=== PATIENT | female | born 2000 | race African-American/Black ===

== ENCOUNTER 2019-12-30 12:06 | Emergency (ER) | payer MEDICAID ==
[~2019-12-30] VITALS: Ht 167.6 cm; Wt 95.0 kg
[2019-12-30 12:11] VITALS: BP 118/64
[2019-12-30 13:39] LABS: CLARITY URINE CLOUDY (CLEAR); COLOR URINE DARK YELLOW (YELLOW); KETONES URINE TRACE (NEGATIVE); LEUKOCYTE ESTERASE URINE TRACE (NEGATIVE); NITRITE URINE NEGATIVE (NEGATIVE); OCCULT BLOOD URINE NEGATIVE (NEGATIVE); PROTEIN URINE NEGATIVE (NEGATIVE); SPECIFIC GRAVITY URINE 1.028 (1.005-1.030)
[2019-12-30] MEDS ORDERED: CEFTRIAXONE SODIUM 250 MG/VIAL IM ONE (13:45)
[2019-12-30] MEDS ORDERED: LIDOCAINE HCL 1% 20ML VIAL (Pyxis) INJ INFIL ONE (13:45)
[2019-12-30] MEDS ORDERED: AZITHROMYCIN 500 MG TABLET PO ONE (13:45)
== END 2019-12-30 14:49 | disposition home or self-care (01) ==
LOC: ER 13:55
DX: N30.00 Acute cystitis without hematuria (principal); A64 Unspecified sexually transmitted disease
CPT/HCPCS: 81003; 81025; 96372; 99283; J0696; J3490

== ENCOUNTER 2021-12-10 13:42 | Observation (INO) | payer MEDICAID ==
[2021-12-10 15:19] LABS: CLARITY URINE CLOUDY (CLEAR); COLOR URINE YELLOW (YELLOW); KETONES URINE NEGATIVE (NEGATIVE); LEUKOCYTE ESTERASE URINE 1+ (NEGATIVE); NITRITE URINE NEGATIVE (NEGATIVE); OCCULT BLOOD URINE NEGATIVE (NEGATIVE); PH URINE 7.5 (4.5-8.0); PROTEIN URINE NEGATIVE (NEGATIVE); SPECIFIC GRAVITY URINE 1.015 (1.005-1.030)
[2021-12-10] MEDS ORDERED: CEFAZOLIN 2,000 MG in DEXT 5% WATER 100 ML IV SCH (18:00)
== END 2021-12-10 18:20 | disposition home or self-care (01) ==
LOC: 8 EST LDRP 13:42
PROVIDERS: ADMIT Obstetrics & Gynecology; ATTEND Obstetrics & Gynecology
DX: O42.92 Full-term premature rupture of membranes, unspecified as to length of time between rupture and onset of labor (principal); Z3A.39 39 weeks gestation of pregnancy
CPT/HCPCS: 59025; 76805; 76818; 81003; 96365; G0378; J0690; J7060; 96360; 99281

== ENCOUNTER 2021-12-14 11:09 | Observation (INO) | payer MEDICAID ==
[~2021-12-14] VITALS: Ht 167.6 cm; Wt 103.0 kg
== END 2021-12-14 14:30 | disposition home or self-care (01) ==
LOC: 8 EST LDRP 11:09
PROVIDERS: ADMIT Obstetrics & Gynecology; ATTEND Obstetrics & Gynecology
DX: O62.9 Abnormality of forces of labor, unspecified (principal); Z3A.39 39 weeks gestation of pregnancy
CPT/HCPCS: 59025; 76815; 76818; G0378; 99281

== ENCOUNTER 2021-12-21 12:06 | Inpatient (IN) | payer MEDICAID ==
[~2021-12-21] VITALS: Ht 167.6 cm; Wt 103.0 kg
[2021-12-21] MEDS ORDERED: LIDOCAINE HCL 1% 20ML VIAL (Pyxis) INJ INFIL SCH (14:30)
[2021-12-21] MEDS ORDERED: NALOXONE HCL 0.4 MG/ML 1ML VIAL IM PRN (14:30)
[2021-12-21] MEDS ORDERED: METHYLERGONOVINE MALEATE 0.2 MG/ML IM PRN (14:30)
[2021-12-21] MEDS ORDERED: CARBOPROST TROMETHAMINE 250 MCG/ML AMPUL IM PRN (14:30)
[2021-12-21] MEDS: MISOPROSTOL 100MCG TABLET VG SCH ×2 (15:25→19:59)
[2021-12-21 16:49] LABS: CLARITY URINE CLOUDY (CLEAR); COLOR URINE YELLOW (YELLOW); KETONES URINE NEGATIVE (NEGATIVE); LEUKOCYTE ESTERASE URINE 3+ (NEGATIVE); NITRITE URINE NEGATIVE (NEGATIVE); OCCULT BLOOD URINE NEGATIVE (NEGATIVE); PH URINE 6.5 (4.5-8.0); PROTEIN URINE NEGATIVE (NEGATIVE); SPECIFIC GRAVITY URINE 1.018 (1.005-1.030)
[2021-12-21 17:02] LABS: BASOPHILS % 0.2 % (0.0-2.0); EOSINOPHILS % 0.6 % (0.0-5.0); HEMATOCRIT. 36.7 % (36.0-48.0); HEMOGLOBIN. 12.1 g/dL (12.0-16.0); MEAN CORPUSCULAR HEMOGLOBIN 29.8 pg (28.0-32.0); MEAN PLATELET VOLUME 9.4 fl (7.4-10.4); MONOCYTES % 8.7 % (2.0-8.0); NEUTROPHILS % 69.5 % (40.0-76.0); PLATELET 172 x1000/uL (130-400); RED BLOOD CELL COUNT 4.07 mill/uL (4.2-5.4); RED CELL DISTRIBUTION WIDTH 13.3 % (11.6-14.6)
[2021-12-21] MEDS: LACTATED RINGERS 1,000 ML IV SCH ×3 (17:04→21:23)
[2021-12-21 17:12] LABS: PARTIAL THROMBOPLASTIN TIME 29.2 sec (23.4-31.0); PROTHROMBIN TIME 10.4 sec (9.6-11.0)
[2021-12-21 17:25] LABS: *AMPHETAMINES SCREEN URINE NEGATIVE (NEGATIVE); *BARBITURATES SCREEN URINE NEGATIVE (NEGATIVE); *BENZODIAZEPINES SCREEN URINE NEGATIVE (NEGATIVE); *COCAINE SCREEN URINE NEGATIVE (NEGATIVE); CANNABINOID URINE SCREEN NEGATIVE (NEGATIVE); METHADONE URINE SCREEN NEGATIVE (NEGATIVE); OPIATES URINE SCREEN NEGATIVE (NEGATIVE); PHENCYCLIDINE URINE SCREEN NEGATIVE (NEGATIVE)
[2021-12-21 18:06] LABS: HEPATITIS B SURFACE ANTIGEN NEGATIVE
[2021-12-21] MEDS ORDERED: TERBUTALINE SULFATE 1MG/ML VIAL SUBCUT PRN (21:00)
[2021-12-21] MEDS ORDERED: PV W1TAB21 PO (22:02)
[2021-12-22] MEDS: MISOPROSTOL 100MCG TABLET VG SCH (03:20)
[2021-12-22] MEDS: LACTATED RINGERS 1,000 ML IV SCH ×3 (06:13→15:52)
[2021-12-22] MEDS: OXYTOCIN 30 UNITS/500ML NS PMX 500 ML IV SCH ×3 (06:36→20:56)
[2021-12-22] MEDS: BUTORPHANOL TARTRATE 2 MG/ML VIAL IV PRN ×2 (07:50→11:04)
[2021-12-22] MEDS ORDERED: ROPIVACAINE HCL/PF EPIDURAL 200 ML EPI SCH (11:45)
[2021-12-22] MEDS ORDERED: ROPIVACAINE HCL/PF EPIDURAL 200 ML EPI ONE (11:47)
[2021-12-22] MEDS ORDERED: RHO(D) IMMUNE GLOBULIN 300 MCG/SYR IM PRN (19:45)
[2021-12-22] MEDS ORDERED: IBUPROFEN 400MG TABLET PO PRN (19:45)
[2021-12-22] MEDS ORDERED: BENZOCAINE/LANOLIN/ALOE VERA SPRAY TOP PRN (19:45)
[2021-12-22] MEDS: IBUPROFEN 800MG TABLET PO PRN (20:11)
[2021-12-22 22:00] VITALS: BP 109/63
[2021-12-22 23:00] VITALS: BP 120/68
[2021-12-23] VITALS: BP 124/68
[2021-12-23] MEDS: IBUPROFEN 800MG TABLET PO PRN ×3 (02:18→22:02)
[2021-12-23 04:00] VITALS: BP 98/53
[2021-12-23 06:39] LABS: BASOPHILS % 0.1 % (0.0-2.0); EOSINOPHILS % 0.5 % (0.0-5.0); HEMATOCRIT. 30.3 % (36.0-48.0); HEMOGLOBIN. 10.3 g/dL (12.0-16.0); LYMPHOCYTES % 14.6 % (20.0-50.0); MEAN CORPUSCULAR HEMOGLOBIN 30.5 pg (28.0-32.0); MEAN CORPUSCULAR VOLUME 89.4 fL (81.0-99.0); MEAN PLATELET VOLUME 9.9 fl (7.4-10.4); MONOCYTES % 7.6 % (2.0-8.0); NEUTROPHILS % 77.2 % (40.0-76.0); PLATELET 146 x1000/uL (130-400); RED BLOOD CELL COUNT 3.39 mill/uL (4.2-5.4); RED CELL DISTRIBUTION WIDTH 13.4 % (11.6-14.6)
[2021-12-23] MEDS ORDERED: FERROUS SULFATE 325MG TABLET PO SCH (07:30)
[2021-12-23 09:00] VITALS: BP 117/69
[2021-12-23] MEDS ORDERED: PRENATAL VIT/FE FUMARATE/FA TABLET PO SCH (09:00)
[2021-12-23 16:00] VITALS: BP 98/58
[2021-12-23 20:00] VITALS: BP 118/70
[2021-12-24 04:00] VITALS: BP 106/63
[2021-12-24] MEDS: IBUPROFEN 800MG TABLET PO PRN (04:43)
== END 2021-12-24 12:00 | disposition home or self-care (01) | DRG 560 ==
LOC: 8 EST LDRP 12:06 → OBSVTOIN 12:06 → 8EST 12-22 22:41
PROVIDERS: ADMIT Obstetrics & Gynecology; ATTEND Obstetrics & Gynecology
PROC: 10D07Z6 Extraction of Products of Conception, Vacuum, Via Natural or Artificial Opening (ICD-10-PCS; principal; 2021-12-22)
PROC: 0W8NXZZ Division of Female Perineum, External Approach (ICD-10-PCS; 2021-12-22)
PROC: 3E0R3BZ Introduction of Anesthetic Agent into Spinal Canal, Percutaneous Approach (ICD-10-PCS; 2021-12-22)
PROC: 00HU33Z Insertion of Infusion Device into Spinal Canal, Percutaneous Approach (ICD-10-PCS; 2021-12-22)
PROC: 3E0P7GC Introduction of Other Therapeutic Substance into Female Reproductive, Via Natural or Artificial Opening (ICD-10-PCS; 2021-12-22)
DX: O80 Encounter for full-term uncomplicated delivery (principal); Z37.0 Single live birth; Z20.822 Contact with and (suspected) exposure to COVID-19; Z3A.40 40 weeks gestation of pregnancy
CPT/HCPCS: 36415; 76815; 80305; 81003; 85025; 86592; 86703; 86762; 86850; 86900; 87340; 87426; G0378; J0595; J2795; J3105; J7120; J2590